=== PATIENT | female | born 1955 | race Caucasian/White ===

== ENCOUNTER 2021-03-01 12:08 | Emergency (ER) | payer MEDICARE, BC, SELFPAY ==
[2021-03-01 12:12] VITALS: BP 132/69; PULSE 79; RESP 16; TEMP 36.8; O2SAT 93; BMI 30.2
--- NOTE | 2021-03-01 12:34 | ED_ITS ---
HPI - Neuro Symptoms/Deficit General: Chief Complaint: Neuro Symptoms/Deficit Stated Complaint: SLURRED SPEECH Time Seen by Provider: 03/01/21 12:11 History of Present Illness: HPI Narrative: 65-year-old male presents emergency room from custodial. She is previously had a stroke she had some weakness and slurred speech this morning and they were concerned she was having a stroke again she has had problems with left-sided weakness due to previous strokes. On arrival her EMS reports her lead maintenance technician were equal she was alert and oriented x3 she is complaining of some head and neck pain which is chronic. When I see the patient initially she is awake alert with normal facial symmetry equal lead maintenance technician bilaterally and normal movement and sensation in the extremities. Onset (ago): hour(s) Timing confirmed by: caregiver Location: speech History of same: Yes Severity: mild Quality: weak Relieving factors: time Exacerbating factors: none Associated symptoms: Reports headache(s); Deny chest pain, cough, diaphoresis, fevers/chills, anorexia, malaise, nausea, seizures, short of breath, syncope, tingling, vertigo or vomiting Treatments Prior to Arrival: none Review of Systems Const: Denies: malaise or diaphoresis ENMT: Denies: throat pain, ear or mastoid pain, nasal discharge or nasal congestion Card: Denies: chest pain or syncope Resp: Denies: dyspnea, productive cough or non-productive cough GI: Denies: nausea or vomiting : Denies: flank pain, difficulty voiding, dysuria, urinary frequency or urinary urgency Skin/Breast: Denies: rash or pruritus Neuro: Reports: headache(s); Denies: vertigo NIH stroke score NIHSS: Level Of Consciousness - 1a: 0 Level Of Consciousness Questions - 1b: Both Correct Level Of Consciousness Commands - 1c: Both Correct Best Gaze - 2: Normal Visual Christianson - 3: No Visual Loss Facial Palsy - 4: Normal Motor Arm Right - 5: No Drift Motor Arm Left - 5: No Drift Motor Leg Right - 6: No Drift Motor Leg Left - 6: No Drift Limb Ataxia - 7: Absent Sensory - 8: Normal Best Language - 9: No Aphasia Dysarthia - 10: Normal Extinction And Inattention - 11: 0 Score: Total Score: 0 Physical Exam Const: COMMON NORMALS: no acute distress GENERAL APPEARANCE: cooperative and comfortable ORIENTATION/CONSCIOUSNESS: Yes awake, Yes oriented to person, Yes oriented to place and Yes oriented to time HENMT: COMMON NORMALS: normocephalic and atraumatic HEAD & SCALP: normocephalic and atraumatic Neck/C-Spine: COMMON NORMALS: no JVD Resp: COMMON NORMALS: normal respiratory effort, No retractions, No use of accessory muscles and clear to auscultation bilaterally AUSCULTATION: clear to auscultation bilaterally Cardio: COMMON NORMALS: no JVD, regular rate, regular rhythm and No murmurs present (Cardio) RATE: regular rate RHYTHM: regular rhythm GI: COMMON NORMALS: Soft to palpation and No hepatosplenomegaly present AUSCULTATION: Yes normoactive bowel sounds PALPATION: Yes Soft to palpation, No Tenderness to palpation present (GI), No Guarding due to palpation present (GI) and Yes No hepatosplenomegaly present Extremity: COMMON NORMALS: normal to inspection, capillary refill normal, no clubbing, cyanosis or edema, no calf tenderness and no pedal edema Neuro: SENSORIUM/ORIENTATION: Yes oriented to person, Yes oriented to place and Yes oriented to time Skin: COMMON NORMALS: no rashes or lesions noted GENERAL SKIN EXAM: no rashes or lesions noted Course Vital Signs: Vital signs: Vital Signs Temperature 98.2 F 03/01/21 12:12 Pulse Rate 79 03/01/21 12:12 Respiratory Rate 16 03/01/21 12:12 Blood Pressure 111/53 03/01/21 13:15 Pulse Oximetry 97 03/01/21 13:15 MDM - Neuro Symptoms/Deficit MDM Narrative: Medical decision making narrative: Labs imaging EKG all reviewed. Patient has no symptoms at this time NIH score is essentially 0 we will discharge home return if has any further problems did encourage take baby aspirin daily. Lab Data: Labs: Lab Results 03/01/21 03/01/21 13:05 13:05 WBC 6.7 10^3/uL 10^3/ uL (4.0-10.0) RBC 4.14 10^6/uL 10^6 /uL (4.1-5.3) Hgb 12.6 g/dL g/dL (11.5-15.3) Hct 38.7 % % (37.0-47.0) MCV 93.5 fl fl (81-99) MCH 30.4 pg pg (28.0-34.0) MCHC 32.6 g/dL g/dL (30.0-36.0) RDW 12.3 % % (12.1-15.1) Plt Count 231 10^3/cmm 10^3 /cmm (130-400) MPV 10.7 fL H fL (7.4-10.4) Neut % (Auto) 59.7 % % Lymph % (Auto) 18.9 % % [place] % (Auto) 15.8 % % Eos % (Auto) 4.8 % % Baso % (Auto) 0.6 % % Neut # (Auto) 3.97 10^3/uL 10^3 /uL (1.8-7.7) Lymph # (Auto) 1.3 10^3/uL 10^3/ uL (0.8-4.8) [place] # (Auto) 1.1 10^3/uL H 10^ 3/uL (0.2-0.9) Eos # (Auto) 0.3 10^3/uL 10^3/ uL (0.0-0.8) Baso # (Auto) 0.0 10^3/uL 10^3/ uL (0.0-0.1) Nucleated RBC % (a uto) 0 % % Nucleated RBCs # 0.0 /100WBC /100W BC Sodium 136 mmol/L mmol/L (136-145) Potassium 4.7 mmol/L mmol/L (3.5-5.1) Chloride 102 mmol/L mmol/L (98-107) Carbon Dioxide 22 mmol/L mmol/L (22-29) Anion Gap 16.7 (5-19) BUN 16 mg/dL mg/dL (8-23) Creatinine 0.8 mg/dL mg/dL (0.5-0.9) GFR Calculation 71.5 mL/min L mL/ min (90-130) Glucose 214 mg/dL H mg/dL (65-115) Calculated Osmolal ity 290 mOsm/kg mOsm/ kg (285-295) Calcium 8.4 mg/dL L mg/dL (8.5-10.5) Total Bilirubin 0.2 mg/dL mg/dL (0.15-1.2) AST 13 U/L U/L (0-32) ALT 9 U/L U/L (0-33) Alkaline Phosphata se 86 IU/L IU/L (35-105) Total Protein 6.4 g/dL L g/dL (6.6-8.7) Albumin 3.4 g/dL L g/dL (3.5-5.2) Globulin 3.0 g/dL g/dL (1.3-4.6) Discharge Plan Discharge Patient Disposition: Home Clinical Impression: History of cerebrovascular accident Condition: Stable Discharge Orders: Discharge ED (Routine); Ordered 03/01/21 Ordered By: Eliecer Lopez Discharge Diet: Usual diet Discharge Activity: Resume usual activity Patient Instructions: Opioid Safety Coding Level of Care Code ED School Social Worker for Geo Fwd Exam Comprehensive
--- NOTE | 2021-03-01 12:35 | ECG_ITS ---
Test Date: 2021-03-01 Pat Name: Dacia Rehman Department: Room: Gender: Female Floor Layer Tile: : 1955 Requested By: Eliecer Bell Order Number: [id number] Reading MD: KATHARINA HORN Measurements Intervals [place] Rate: 77 P: 62 MT: 162 QRS: 42 QRSD: 83 T: 58 QT: 395 QTc: 448 Interpretive Statements SINUS RHYTHM LOW QRS VOLTAGE IN PRECORDIAL LEADS [QRS DEFLECTION < 1.0 mV IN CHEST LEADS] No previous ECG available for comparison Electronically Signed On 03-01-2021 19:54:09 INDUSTRIAL SPRAY PAINTER by KATHARINA HORN [id number]
--- NOTE | 2021-03-01 12:35 | CT_ITS ---
WS: [id number] CT HEAD NONCONTRAST HISTORY: acute neurosymptoms, weakness and slurred speech. TECHNIQUE: Contiguous axial imaging performed through the brain in 2.5 mm imaging. Bone and soft tiss ue windows. Sagittal and coronal reformats reviewed. All CT scans at [facility] use at least one of these dose optimization techniques: automated exposure control; mA and/or kV adjustment per pa tient size (includes targeted exams where dose is matched to clinical indication); or iterative recon struction. DLP: 764.38 mGy.cm COMPARISON: None available. No acute intracranial hemorrhage, midline shift or mass effect. Mild atrophy. Numerous lacunar infarcts are noted bilaterally within the basal ganglia and the centru m semiovale ovale. Prior RIGHT isael lacunar infarct. No focal area of sulcal effacement. Additional L EFT thalamic lacunar infarct. Ventricles: Normal size with no hydrocephalus. Paranasal sinuses: As visualized are clear. Mastoid air cells: Well pneumatized. Calvarium and scalp: Skull is intact with no soft tissue edema or swelling. CT/CT head wo con* [id number] IMPRESSION: 1. No acute intracranial hemorrhage or edema. 2. Numerous bilateral prior lacunar infarcts.
[2021-03-01 13:13] LABS: Basophils % 0.6 %; Eosinophils # 0.3 10^3/uL (0.0-0.8); Eosinophils % 4.8 %; Hematocrit 38.7 % (37.0-47.0); Hemoglobin 12.6 g/dL (11.5-15.3); Lymphocytes # 1.3 10^3/uL (0.8-4.8); Lymphocytes % 18.9 %; Mean Corpuscular HGB Conc 32.6 g/dL (30.0-36.0); Mean Corpuscular Hemoglobin 30.4 pg (28.0-34.0); Mean Corpuscular Volume 93.5 fl (81-99); Mean Platelet Volume 10.7 fL (7.4-10.4); Monocytes # 1.1 10^3/uL (0.2-0.9); Monocytes % 15.8 %; Neutrophils # 3.97 10^3/uL (1.8-7.7); Neutrophils % 59.7 %; Nucleated Red Blood Cells % 0 %; Platelet Count 231 10^3/cmm (130-400); Red Blood Count 4.14 10^6/uL (4.1-5.3); Red Cell Distribution Width 12.3 % (12.1-15.1); White Blood Count 6.7 10^3/uL (4.0-10.0)
[2021-03-01 13:15] VITALS: BP 111/53; O2SAT 97
[2021-03-01 13:30] LABS: Alanine Aminotransferase 9 U/L (0-33); Albumin Level 3.4 g/dL (3.5-5.2); Alkaline Phosphatase 86 IU/L (35-105); Anion Gap 16.7 (5-19); Aspartate Amino Transferase 13 U/L (0-32); Blood Urea Nitrogen 16 mg/dL (8-23); Calcium 8.4 mg/dL (8.5-10.5); Carbon Dioxide 22 mmol/L (22-29); Chloride 102 mmol/L (98-107); Glomerular Filtration Rate 71.5 mL/min (90-130); Glucose 214 mg/dL (65-115); Osmolality Calculated 290 mOsm/kg (285-295); Potassium 4.7 mmol/L (3.5-5.1); Sodium 136 mmol/L (136-145); Total Bilirubin 0.2 mg/dL (0.15-1.2); Total Protein 6.4 g/dL (6.6-8.7)
== END 2021-03-01 16:00 | disposition home or self-care (01) ==
PROVIDERS: Emergency Provider Family Medicine; PCP Internal Medicine
DX: Z03.89 Encounter for observation for other suspected diseases and conditions ruled out (principal); Z86.73 Personal history of transient ischemic attack (TIA), and cerebral infarction without residual deficits
CPT/HCPCS: 36415; 70450; 80053; 85025; 93005; 99283

== ENCOUNTER 2022-03-04 21:53 | Emergency (ER) | payer MEDICARE, SELFPAY ==
[2022-03-04 21:58] VITALS: BMI 25.5
--- NOTE | 2022-03-04 21:58 | XRR_ITS ---
PROCEDURE INFORMATION: Exam: XR Chest Exam date and time: 03/04/2022 10:20 PM Age: 66 years old Clinical indication: Shortness of breath; Chest pressure; Patient HX: C/O chest pain with SOB. ; Additional info: Cp TECHNIQUE: Imaging protocol: Radiologic exam of the chest. Views: 1 view. COMPARISON: No relevant prior studies available. FINDINGS: Lungs: Unremarkable. No consolidation. Pleural spaces: Unremarkable. No pleural effusion. No pneumothorax. Heart/Mediastinum: Unremarkable. No cardiomegaly. Vasculature: Advanced diffuse vascular calcification noted. Bones/joints: Unremarkable. Organs: Absent gallbladder. XR/XR chest 1V portable [id number] IMPRESSION: No acute findings.
[2022-03-04 22:04] VITALS: BP 137/65; PULSE 76; RESP 16; TEMP 37.1; O2SAT 94
--- NOTE | 2022-03-04 22:08 | ECG_ITS ---
[facility] Test Date: 2022-03-04 Pat Name: Dacia Rehman Department: Room: Gender: Female Ceramic Design Engineer: : 1955 Requested By: Natasha Muller Order Number: [id number] Cyndie MD: Aneudy Zaidi M.D. Measurements Intervals [place] Rate: 74 P: 66 [place]: 136 QRS: 37 QRSD: 87 T: 65 QT: 392 QTc: 437 Interpretive Statements SINUS RHYTHM Compared to ECG 03/01/2021 13:07:57 No significant changes Electronically Signed On 03-05-2022 17:47:22 GASKET WINDER by Aneudy Zaidi M.D. [email or web address]
--- NOTE | 2022-03-04 22:18 | ED_ITS ---
HPI - Chest Pain General: Chief Complaint: Chest Pain Stated Complaint: CP Time Seen by Provider: 03/04/22 22:00 Source: patient and EMS Mode of arrival: EMS Limitations: no limitations History of Present Illness: 66-year-old female here from senior care states she been having some epigastric abdominal pain along with some chest pain. States has been going on throughout the day she rates it a 2 out of 10 currently no shortness of breath no cough no fevers. Patient is resting comfortably currently. Associated symptoms: Deny abdominal pain, dyspnea, fever(s), nausea or vomiting Review of Systems Const: Denies: fever(s), chills, body aches or change in appetite Eyes: Denies: blurry vision or eye discomfort ENMT: Denies: throat pain or dental pain Card: Reports: chest pain Resp: Denies: dyspnea GI: Denies: abdominal pain, nausea, vomiting or diarrhea : Denies: dysuria Musc: Denies: neck pain or back pain Skin/Breast: Denies: rash Neuro: Denies: headache(s) Psych: Denies: depression Davian/Lymph: Denies: easy bruising All/Imm: Denies: urticaria PFSH ED PFSH: Social History (Updated 03/04/22 @ 22:20 by Natasha Muller MD) Substance/Drug Use: unknown Physical Exam Const: COMMON NORMALS: no acute distress, patient oriented x3 and healthy appearing HENMT: COMMON NORMALS: normocephalic and atraumatic HEAD & SCALP: normocephalic and atraumatic Eye: COMMON NORMALS: Equal, round and reactive pupils present and EOMs intact bilaterally PUPIL: Yes Equal, round and reactive pupils present Neck/C-Spine: COMMON NORMALS: full ROM and supple Chest: COMMONS NORMALS: normal inspection of the chest and normal palpation of entire chest wall Resp: COMMON NORMALS: normal respiratory effort, No retractions, No use of accessory muscles and clear to auscultation bilaterally AUSCULTATION: clear to auscultation bilaterally Cardio: COMMON NORMALS: regular rate, regular rhythm and No murmurs present (Cardio) RATE: regular rate RHYTHM: regular rhythm GI: COMMON NORMALS: Normal to inspection, nondistended, normoactive bowel sounds present, Soft to palpation, non-tender and no masses PALPATION: Yes Soft to palpation Extremity: COMMON NORMALS: normal to inspection and full ROM Neuro: COMMON NORMALS: patient oriented x3, moves all extremities and no focal motor deficits Psych: COMMON NORMALS: mental status grossly normal, Normal thought process present and cooperative THOUGHT PROCESS: Normal thought process present Skin: COMMON NORMALS: no rashes or lesions noted and no wounds GENERAL SKIN EXAM: no rashes or lesions noted Course 2 Vital Signs: Vital signs: Vital Signs Temperature 98.8 F 03/04/22 22:04 Pulse Rate 76 03/04/22 22:04 Respiratory Rate 16 03/04/22 22:04 Blood Pressure 137/65 03/04/22 22:04 Pulse Oximetry 94 03/04/22 22:04 Oxygen Delivery Me thod 03/04/22 22:04 MDM - Chest Pain Medical Decision Making Patient presents here with chest pains atypical in nature her initial repeat tr oponin are normal blood work is normal she has been well-appearing here and chest pain-free she is stable for discharge back to senior care. Lab Data 03/04/22 22:20 03/04/22 22:20 Radiology Impressions Chest X-Ray 03/04/22 21:58 IMPRESSION: No acute findings. Laboratory Results WBC 6.5 10^3/uL (4.0-10.0) 03/04/22 22:20 RBC 4.08 10^6/uL (4.1-5.3) L 03/04/22 22:20 Hgb 12.8 g/dL (11.5-15.3) 03/04/22 22:20 Hct 38.7 % (37.0-47.0) 03/04/22 22:20 MCV 94.9 fl (81-99) 03/04/22 22:20 MCH 31.4 pg (28.0-34.0) 03/04/22 22:20 MCHC 33.1 g/dL (30.0-36.0) 03/04/22 22:20 RDW 13.2 % (12.1-15.1) 03/04/22 22:20 Plt Count 309 10^3/cmm (130-400) 03/04/22 22:20 MPV 10.4 fL (7.4-10.4) 03/04/22 22:20 Neut % (Auto) 49.1 % 03/04/22 22:20 Lymph % (Auto) 32.4 % 03/04/22 22:20 [place] % (Auto) 15.2 % 03/04/22 22:20 Eos % (Auto) 2.0 % 03/04/22 22:20 Baso % (Auto) 0.5 % 03/04/22 22:20 Neut # (Auto) 3.21 10^3/uL (1.8-7.7) 03/04/22 22:20 Lymph # (Auto) 2.1 10^3/uL (0.8-4.8) 03/04/22 22:20 [place] # (Auto) 1.0 10^3/uL (0.2-0.9) H 03/04/22 22:20 Eos # (Auto) 0.1 10^3/uL (0.0-0.8) 03/04/22 22:20 Baso # (Auto) 0.0 10^3/uL (0.0-0.1) 03/04/22 22:20 Nucleated RBC % (auto) 0 % 03/04/22 22:20 Nucleated RBCs # 0.0 /100WBC 03/04/22 22:20 Sodium 140 mmol/L (136-145) 03/04/22 22:20 Potassium 3.8 mmol/L (3.5-5.1) 03/04/22 22:20 Chloride 103 mmol/L (98-107) 03/04/22 22:20 Carbon Dioxide 26 mmol/L (22-29) 03/04/22 22:20 Anion Gap 14.8 (5-19) 03/04/22 22:20 BUN 12 mg/dL (8-23) 03/04/22 22:20 Creatinine 0.4 mg/dL (0.5-0.9) L 03/04/22 22:20 GFR Calculation 158.7 mL/min (90-130) H 03/04/22 22:20 Glucose 154 mg/dL (65-115) H 03/04/22 22:20 Calculated Osmolality 293 mOsm/kg (285-295) 03/04/22 22:20 Calcium 9.4 mg/dL (8.5-10.5) 03/04/22 22:20 Total Bilirubin 0.2 mg/dL (0.15-1.2) 03/04/22 22:20 AST 17 U/L (0-32) 03/04/22 22:20 ALT 14 U/L (0-33) 03/04/22 22:20 Alkaline Phosphatase 82 U/L (35-105) 03/04/22 22:20 Troponin T Baseline 9 ng/L (0-10) 03/04/22 22:20 Troponin T 120 Minute 8.13 ng/L (0-10) 03/05/22 00:30 Total Protein 6.4 g/dL (6.6-8.7) L 03/04/22 22:20 Albumin 3.6 g/dL (3.5-5.2) 03/04/22 22:20 Globulin 2.8 g/dL (1.3-4.6) 03/04/22 22:20 Lipase 20 U/L (13-60) 03/04/22 22:20 EKG Data EKG 1: I personally reviewed and interpreted this EKG as follows: EKG interpretation date: 03/04/22 EKG interpretation time: 22:08 Interpretation: nsr hr [address] or t wave abnormalities qrs 87 qtc 420 Discharge Plan Discharge Patient Disposition: Home Clinical Impression: Chest pain Discharge Orders: Discharge ED (Routine); Ordered 03/05/22 Ordered By: Natasha Muller Referrals: Samson Hendrickson DO [Primary Care Provider] - Discharge Diet: Advance as tolerated Discharge Activity: Resume usual activity Patient Instructions: Chest Pain (ED) Coding Level of Care Code ED Ct Scan Tech for Chg Fwd Exam Comprehensive
[2022-03-04 22:26] LABS: Basophils % 0.5 %; Eosinophils # 0.1 10^3/uL (0.0-0.8); Hematocrit 38.7 % (37.0-47.0); Hemoglobin 12.8 g/dL (11.5-15.3); Lymphocytes # 2.1 10^3/uL (0.8-4.8); Lymphocytes % 32.4 %; Mean Corpuscular HGB Conc 33.1 g/dL (30.0-36.0); Mean Corpuscular Hemoglobin 31.4 pg (28.0-34.0); Mean Corpuscular Volume 94.9 fl (81-99); Mean Platelet Volume 10.4 fL (7.4-10.4); Monocytes % 15.2 %; Neutrophils # 3.21 10^3/uL (1.8-7.7); Neutrophils % 49.1 %; Nucleated Red Blood Cells % 0 %; Platelet Count 309 10^3/cmm (130-400); Red Blood Count 4.08 10^6/uL (4.1-5.3); Red Cell Distribution Width 13.2 % (12.1-15.1); White Blood Count 6.5 10^3/uL (4.0-10.0)
[2022-03-04 22:47] LABS: Troponin(5th) Baseline 9 ng/L (0-10)
[2022-03-04 22:49] LABS: Alanine Aminotransferase 14 U/L (0-33); Albumin Level 3.6 g/dL (3.5-5.2); Alkaline Phosphatase 82 U/L (35-105); Anion Gap 14.8 (5-19); Aspartate Amino Transferase 17 U/L (0-32); Blood Urea Nitrogen 12 mg/dL (8-23); Calcium 9.4 mg/dL (8.5-10.5); Carbon Dioxide 26 mmol/L (22-29); Chloride 103 mmol/L (98-107); Globulin 2.8 g/dL (1.3-4.6); Glomerular Filtration Rate 158.7 mL/min (90-130); Glucose 154 mg/dL (65-115); Lipase 20 U/L (13-60); Osmolality Calculated 293 mOsm/kg (285-295); Potassium 3.8 mmol/L (3.5-5.1); Sodium 140 mmol/L (136-145); Total Bilirubin 0.2 mg/dL (0.15-1.2); Total Protein 6.4 g/dL (6.6-8.7)
--- NOTE | 2022-03-04 23:58 | ECG_ITS ---
[facility] Test Date: 2022-03-05 Pat Name: Dacia Rehman Department: Room: Gender: Female Cleaner: : 1955 Requested By: Natasha Muller Order Number: [id number] Cyndie MD: Aneudy Zaidi M.D. Measurements Intervals [place] Rate: 76 P: 66 [place]: 141 QRS: 44 QRSD: 90 T: 65 QT: 417 QTc: 470 Interpretive Statements SINUS RHYTHM Compared to ECG 03/04/2022 22:08:21 No significant changes Electronically Signed On 03-05-2022 17:54:53 GEOSPATIAL TECHNICIAN by Aneudy Zaidi M.D. [email or web address] [email or web address] memorial [id number]
[2022-03-05 00:56] LABS: Troponin 5 2HR 8.13 ng/L (0-10)
[2022-03-05 01:15] VITALS: BP 148/74; PULSE 85; RESP 18; O2SAT 94
[2022-03-05 01:22] LABS: Troponin 5 2HR Delta -0.87 ABS# (0-10)
[2022-03-05 04:04] VITALS: BP 141/72; PULSE 72; RESP 17; TEMP 36.6; O2SAT 96
== END 2022-03-05 04:06 | disposition home or self-care (01) ==
PROVIDERS: Emergency Provider Emergency Medicine; PCP Internal Medicine
DX: R07.9 Chest pain, unspecified (principal)
CPT/HCPCS: 71045; 80053; 83690; 84484; 85025; 93005; 99285

== ENCOUNTER → 2022-07-11 08:05 | Outpatient (BNVA) | payer MEDICARE, MEDICAID, SELFPAY | PROVIDERS: PCP Family Medicine; Visit Provider Podiatrist Foot & Ankle Surgery | DX: E11.42 Type 2 diabetes mellitus with diabetic polyneuropathy (principal); L60.0 Ingrowing nail; L60.3 Nail dystrophy; I73.9 Peripheral vascular disease, unspecified; M20.40 Other hammer toe(s) (acquired), unspecified foot; Z79.4 Long term (current) use of insulin | CPT/HCPCS: 99204 ==

== ENCOUNTER → 2022-07-30 08:00 | Outpatient (BNVA) | payer MEDICARE, MEDICAID, SELFPAY | PROVIDERS: PCP Family Medicine; Visit Provider Podiatrist Foot & Ankle Surgery | DX: E11.42 Type 2 diabetes mellitus with diabetic polyneuropathy (principal); L60.0 Ingrowing nail; L60.3 Nail dystrophy; I73.9 Peripheral vascular disease, unspecified; M20.40 Other hammer toe(s) (acquired), unspecified foot; Z79.4 Long term (current) use of insulin | CPT/HCPCS: 99213 ==

== ENCOUNTER → 2022-10-03 08:08 | Outpatient (BNVA) | payer MEDICARE, MEDICAID, SELFPAY | PROVIDERS: PCP Family Medicine; Visit Provider Podiatrist Foot & Ankle Surgery | DX: I73.9 Peripheral vascular disease, unspecified (principal); E11.42 Type 2 diabetes mellitus with diabetic polyneuropathy; L60.3 Nail dystrophy; M20.40 Other hammer toe(s) (acquired), unspecified foot; L97.421 Non-pressure chronic ulcer of left heel and midfoot limited to breakdown of skin; E11.621 Type 2 diabetes mellitus with foot ulcer; Z79.4 Long term (current) use of insulin | CPT/HCPCS: 99214 ==

== ENCOUNTER → 2022-12-17 08:55 | Outpatient (BNVA) | payer MEDICARE, OTHER, MEDICAID, SELFPAY | PROVIDERS: PCP Family Medicine; Visit Provider Podiatrist Foot & Ankle Surgery | DX: E11.42 Type 2 diabetes mellitus with diabetic polyneuropathy (principal); L60.3 Nail dystrophy; I73.9 Peripheral vascular disease, unspecified; M20.40 Other hammer toe(s) (acquired), unspecified foot; Z79.4 Long term (current) use of insulin | CPT/HCPCS: 11721 ==